=== PATIENT | female | born 1975 | race Two or more races ===

== ENCOUNTER 2020-05-26 03:22 | Emergency (ER) | payer MEDICAID ==
[~2020-05-26] VITALS: Ht 170.2 cm; Wt 66.7 kg
[2020-05-26 04:01] LABS: Basophils # (auto) 0 10 ^3/uL (0-0.2); Basophils % (auto) 0.5 % (0.0-2.0); Eosinophils # (auto) 0.1 10 ^3/uL (0-0.8); Hemoglobin 14.4 g/dL (12.2-16.2); Lymphocytes # (auto) 1.2 10 ^3/uL (0.4-5.4); Lymphocytes % (auto) 20.4 % (10.0-50.0); Mean Corpuscular Hemoglobin 29.8 pg (28.0-32.0); Mean Corpuscular Hgb Conc. 34.2 g/dL (32.0-36.0); Monocytes # (auto) 0.4 10 ^3/uL (0-1.3); Monocytes % (auto) 7.4 % (0.0-12.0); Neutrophils # (auto) 4.2 10 ^3/uL (1.6-8.6); Neutrophils % (auto) 70.7 % (37.0-80.0); Nucleated Red Blood Cells % 0.2 %; Platelet Count (auto) 223 10^3/uL (140-450); Red Blood Cells 4.83 10^6/uL (4.0-5.20); Red Cell Distribution Width 12.5 % (11.8-14.3); White Blood Cell 5.9 10^3/uL (4.4-10.8)
[2020-05-26 04:14] LABS: INR 0.96 (0.9-1.15); Partial Thromboplastin Time 24.6 sec (23.0-31.2)
[2020-05-26 04:20] LABS: Albumin 3.6 g/dL (3.4-5.0); Anion Gap 5 (5-15); Blood Urea Nitrogen 11 mg/dL (7-18); Calcium 8.6 mg/dL (8.5-10.1); Carbon Dioxide 27 mmol/L (21-32); Chloride 107 mmol/L (98-107); Glucose 107 mg/dL (74-106); Magnesium 2.4 mg/dL (1.6-2.6); Potassium 3.5 mmol/L (3.5-5.1); Sodium 139 mmol/L (136-145)
[2020-05-26 04:26] LABS: Alanine Aminotransferase 25 U/L (13-56); Alkaline Phosphatase 97 U/L (45-117); Aspartate Aminotransferase 16 U/L (15-37); BUN/Creatinine Ratio 13.4; Bilirubin, Total 0.4 mg/dL (0.2-1.0); GFR African American 98 mL/min; GFR Non-African American 81 mL/min; Total Protein 7.2 g/dL (6.4-8.2)
[2020-05-26 08:19] VITALS: BP 105/70
== END 2020-05-26 08:24 | disposition home or self-care (01) ==
LOC: ER 03:24 → EDBD 03:24 → ER 08:20
DX: J06.9 Acute upper respiratory infection, unspecified (principal); Z20.822 Contact with and (suspected) exposure to COVID-19
CPT/HCPCS: 36415; 71045; 80053; 82728; 83735; 83880; 84484; 85025; 85379; 85610; 85730; 87426; 93005; 99285; C9803; U0003

== ENCOUNTER 2021-10-18 04:32 | Emergency (ER) | payer MEDICAID ==
[~2021-10-18] VITALS: Ht 152.4 cm; Wt 68.0 kg
[2021-10-18] MEDS ORDERED: HYDROcodone-ACET 5/325MG TAB PO ONE (07:15)
[2021-10-18] MEDS ORDERED: KETOROLAC TROMETH 60MG/2ML VIAL IM ONE (07:15)
[2021-10-18] MEDS ORDERED: IBUP800T27 PO (07:26)
[2021-10-18] MEDS ORDERED: METH750T22 PO (07:26)
[2021-10-18 07:31] VITALS: BP 117/77
== END 2021-10-18 07:53 | disposition home or self-care (01) ==
LOC: EDBD 04:32 → ER 04:32
DX: S39.012A Strain of muscle, fascia and tendon of lower back, initial encounter (principal); X50.0XXA Overexertion from strenuous movement or load, initial encounter; Y93.89 Activity, other specified; Y92.89 Other specified places as the place of occurrence of the external cause; Y99.8 Other external cause status
CPT/HCPCS: 96372; 99283; J1885